=== PATIENT | female | born 1990 | race Caucasian/White ===

== ENCOUNTER 2020-08-26 23:55 | Inpatient (IN) | payer OTHER, SELFPAY ==
[~2020-08-26] VITALS: Ht 172.7 cm; Wt 77.3 kg
[2020-08-27] VITALS (34 sets, daily range): BP systolic 98–163; BP diastolic 51–93
[2020-08-27] MEDS ORDERED: PRENTAB29 PO (00:17)
[2020-08-27] MEDS ORDERED: FENTANYL 2MCG/ML ROPIVACAINE 0.2% IN 0.9% NACL 100ML IVBAG As Ordered ONE (00:33)
[2020-08-27] MEDS ORDERED: OXYTOCIN 30 UNITS IN 0.9% NaCl 500ML IV BAG (J2590) As Ordered ONE (00:34)
[2020-08-27 00:47] LABS: HEMATOCRIT 34.6 % (36.0-47.0); HEMOGLOBIN 11.1 g/dl (12.0-15.5); MEAN CORPUSCULAR HGB CONC 32.1 g/dl (32.0-36.5); PLATELET COUNT, AUTOMATED 262 10^3/uL (150-450); RED BLOOD COUNT 4.27 10^6/uL (4.00-5.40); WHITE BLOOD COUNT 13.6 10^3/uL (4.0-10.0)
--- NOTE | 2020-08-27 01:03 | HPEPDOC ---
Obstetrical History & Physical General Date of Admission Aug 27, 2020 at 00:03 History of Present Illness 29yo at 40+0wks presenting for c/o worsening ctx's and gush of clear fluid at 2330. Endorses spotting VB. Denies DFM. Chief Complaint: Contractions, term, LOF, term Information Provided By: Patient Age: 29 : 1 Care Care: Good Care Dating Final EDC: Aug 27, 2020 Final EDC for Daily Update: Aug 27, 2020 Final EDC by: 1st trimester (US) (6w3d on [id number]) Antepartum Course Diagnos(e)s Abnormal pap - ASCUS/HPV+ UTI in Height (inches): 68 Pre- weight (lbs.): 140 Admission Weight (lbs.): 172 Change in Weight (lbs.): 32 Past Medical History Past Obstetrical History : Past Obstetrical History: Primgravida [employer] History: Ovarian cysts (PCOS), History of STD (chlamydia prior to ) Past Medical History Medical History Denies Surgical History: Tonsilectomy, Angie teeth Family History Significant Family History: Diabetes (Mother and sister have Type I DM) Social History Marital Status: Family situation: Spouse/partner home Psychosocial History: No pertinent psych hx * Smoker: non-smoker Alcohol: Denies Drugs: denies Abuse Violence Screening Have you been hit/kicked/slapp: No Have you been sexually assault: No Imunizations Tdap status: current (06/07/20) Influenza Status: current (02/08/20) Allergies Coded Allergies: No Known Allergies (Unverified , 08/27/20) Medications Scheduled Vit No.130/Iron/Folic ( Tablet) 1 Each Tablet, 1 TAB PO DAILY Physical Examination Physical Examination GENERAL: Alert and oriented times three. In moderate distress from painful ctx's ABDOMEN: Gravid and non-tender to touch. FETUS: Is vertex (VTX) by sterile vaginal examination (SVE), fetus is vertex (VTX) by [place]. CARDS: well-perfused RESP: no exaggerated respiratory effort appreciated, no cough EXTREMITIES: No edema. : NEFG, grossly ruptured with clear fluid present, no VB appreciated. SVE 4/80/-1 Laboratory Data Urine Culture: Contaminated Pertinent Laboratoy Data Blood Type: O+ RBC Antibody Screen: Negative HIV: Negative Hepatitis B: Negative Rapid Plasma Reagin: Nonreactive Rubella: Immune Varicella: Immune Chlamydia/Gonorrhea: Negative Group B Streptococcus: Negative ([id number]) Cystic Fibrosis: Unknown Glucose Tolerance Test: 106 Diag/Inter Therapy M21 - low risk with male fetus Pap - ASCUS/HPV+ Anatomy Ultrasound Ultrasound Date: April 09, 2020 Placenta Location: Anterior Normal Anatomy: Yes Placenta Previa: No Vaginal Examination Dilation: 4 cm Effacement: 80% Station: -1 Cervical Consistency: Soft Cervical Position: Anterior Presentation: Cephalic presentation Assessment Heart Rate (FHR): 140 Variability: Moderate Accelerations: Positive Decelerations: None Tocometer Contractions: Yes Frequency: every 1-5 min. Multi-drug resistant Organism: No history of MDRO Assessment/Plan Assessment 29yo at 40+0wks presenting for painful ctx's and gush of fluid. Patient found to make spontaneous cervical change upon presentation from 2/80/-1 to 4/80/-1 and noted to be grossly ruptured. Patient in active labor. FHRT cat I. Normotensive, afebrile. GBS neg. EFW 3500g. Plan Admit and orient. House Piping Inspector and consent. Diet: clears as tolerated Group B Streptococcus (GBS) negative. Labs and intravenous (IV) per unit protocol. Lactated Ringers (LR): Bolus 800 mL, then at 125 mL/hr. Anticipate normal spontaneous delivery (). C-S as appropriate. CHRIS GUILLEN DO Aug 27, 2020 01:03
--- NOTE | 2020-08-27 01:08 | IPNPDOC ---
Obstetrical Progress Note Date of Service Aug 27, 2020 Subjective Patient screaming in pain from ctx's and endorsing pelvic pressure Assessment Heart Rate (FHR): 130 Variability: Moderate Accelerations: None Decelerations: Early, Late Heart Rate Tracing: Category II Tocometer Contractions: Yes Frequency: every 1-3 min. Sterile Vaginal Examination Dilation: 7 cm Effacement (%): 100% Station: 0 Cervical Consistency: Soft Cervical Position: Anterior Postion/Presentation: Cephalic presentation Assessment and Plan Group B Streptococcus: Negative Anticipate: Vaginal Delivery Additional Comments Patient has made spontaneous cervical change with bloody show noted. FHRT has become cat II for late vs early decels. Maternal IV bolus initiated, Maternal O2 applied, and positional changes performed. Patient desires epidural for pain mgmt. Anesthesia consulted. Plan for expectant . CHRIS GUILLEN DO Aug 27, 2020 01:08
[2020-08-27] MEDS ORDERED: ePHEDrine SULFATE 25 MG/5 ML(5MG/ML) SYRINGE IV PRN (01:29)
[2020-08-27] MEDS ORDERED: LACTATED RINGER'S 1000 ML IV PRN (01:29)
[2020-08-27] MEDS ORDERED: EPIDURAL/PCA KEYS XX PRN (01:29)
[2020-08-27] MEDS ORDERED: EPIDURAL COMMENT XX SCH (01:29)
[2020-08-27] MEDS ORDERED: FENTANYL/ROPIVACAINE/NACL BAG 100 ML EPIDURAL SCH (01:29)
[2020-08-27] MEDS ORDERED: diphenhydrAMINE 50MG/ML VIAL (J1200) IV PRN (01:29)
[2020-08-27] MEDS ORDERED: ONDANSETRON 4MG/2ML VIAL IV PRN (01:29)
[2020-08-27] MEDS ORDERED: NALOXONE INJ 0.4MG/1ML VIAL (J2310 PER 1MG) IV PRN (01:29)
[2020-08-27] MEDS ORDERED: REFRIGERATOR IV KEYS XX PRN (01:29)
--- NOTE | 2020-08-27 03:18 | IPNPDOC ---
Obstetrical Progress Note Date of Service Aug 27, 2020 Subjective Patient feeling pressure with ctx's when on her side. Assessment Heart Rate (FHR): 140 Variability: Moderate Accelerations: None Decelerations: None Heart Rate Tracing: Category I Tocometer Contractions: Yes Frequency: every 1-3 min. Sterile Vaginal Examination Dilation: 9 cm Effacement (%): 100% Station: +1 Cervical Consistency: Soft Cervical Position: Anterior Postion/Presentation: Cephalic presentation Assessment and Plan Status: Reassuring Group B Streptococcus: Negative Anticipate: Vaginal Delivery Additional Comments Patient had attempted to push for 30 minutes after requesting to start pushing due to pressure. AL attempted to be reduced but unable to keep reduced between pushes. No descent after 30 minutes of pushing. Will stop pushing at this time and allow for passive descent with positional changes using peanut ball. FHRT cat I. Patient desires to proceed, safe to continue. CHRIS GUILLEN DO Aug 27, 2020 03:18
--- NOTE | 2020-08-27 06:48 | DNPDOC ---
[facility] Delivery Note Delivery Note DATE OF DELIVERY: 08/27/2020 PREDELIVERY DIAGNOSIS: 40+0/7 weeks' gestation and labor. POST DELIVERY DIAGNOSIS: Delivered. PROCEDURE: Spontaneous vaginal delivery. INSPECTOR STRUCTURAL BONDING: Dr. Chris Guillen ANESTHESIA: Epidural. ESTIMATED BLOOD LOSS: 100 mL. FINDINGS: 9 pound 6 ounce 4240g male , Score 8/9, no nuchal cord, terminal meconium noted on delivery field DELIVERY SUMMARY: Patient was found to push down to c/c/+4 station. Patient prepped for delivery. With good maternal effort, spontaneous vaginal delivery of a viable male . Presentation was OA with restitution to ROT with left shoulder anterior position. Anterior shoulder and body delivered without difficulty. No nu chal/foot/body cord noted. Terminal meconium upon delivery of body noted. Infant placed on maternal abdomen with spontaneous cry. Infant dried and bulb suctioned and care transferred to [place] Team. Pitocin IV bolus initiated. Inspection revealed vaginal floor laceration that was repaired using 2-0 vicryl in running, non-locking fashion with good hemostasis achieved. After 9 minutes of delayed cord clamping, three vessel cord clamped x2 and cut by patient. Third stage spontaneous with intact placenta. Fundal massage revealed firm uterine tone. EBL 100ml. Mother and infant stable and bonding upon my leaving the room. CHRIS GUILLEN DO Aug 27, 2020 06:48
[2020-08-28 06:00] VITALS: BP 108/67
--- NOTE | 2020-08-28 09:01 | OBDS ---
[facility] Obstetrical Discharge Sum. Obstetrical Discharge Summary Date: Aug 28, 2020 Time: 08:21 : 1 Term: 1 Pre-term: 0 Abortions: 0 Livin VDRL: Non-Reactive Rh: Positive Rubella: Immune Labor 29 y/o G1 now P1001 s/p presented to labor and delivery with SROM. She progressed to fully dilated and delivered via vaginal delivery without complications. Delivery 08/27/2020 Sex: Male Infant Weight: pounds (9), ounces (6), grams (4240) Anesthesia: Regional Anesthesia A/P, Post Course List any complications Admission diagnosis: SROM. Discharge diagnosis: s/p Condition at Discharge: Patient is feeling well without any concerns at this time Discharge Instructions: Home/other Activity: May continue usual activities Diet: Regular as tolerated Medications: Take prescriptions as instructed Follow-up: 4-6 weeks for visit Other: Discussed plan and s/s to monitor for and when to return to clinic TJ GREEN CNM Aug 28, 2020 08:21
[2020-08-28 17:46] VITALS: BP 117/68
--- NOTE | 2020-09-05 15:42 | IPN ---
DATE: 08/27/2020 This patient requested circumcision of her male . After discussing the risks and benefits of circumcision, the medical to non-medical indications, the penile block and aftercare, expressed understanding of penile block, aftercare, and bleeding, signed the consent form, all questions were answered, 20 minute discussion. We await the clearance by the flow floor attendant. XI
== END 2020-08-28 18:40 | disposition home or self-care (01) | DRG 807 ==
LOC: M LDO 23:55 → M LDI 08-27 00:03 → M OBS 08-27 09:44
PROC: 10E0XZZ Delivery of Products of Conception, External Approach (ICD-10-PCS; principal; 2020-08-27)
PROC: 0HQ9XZZ Repair Perineum Skin, External Approach (ICD-10-PCS; 2020-08-27)
DX: O70.0 First degree perineal laceration during delivery (principal); Z37.0 Single live birth; Z3A.40 40 weeks gestation of pregnancy; O77.0 Labor and delivery complicated by meconium in amniotic fluid

== ENCOUNTER 2022-02-06 17:19 | Outpatient (CLI) | payer OTHER ==
[~2022-02-06] VITALS: Ht 175.3 cm; Wt 75.0 kg
[~2022-02-06 17:19] MED LIST: PRENTAB29 PO
[2022-02-06 17:34] VITALS: BP 118/60
[2022-02-06] MEDS ORDERED: HOME MED LIST COMPLETE! XX SCH (17:50)
== END 2022-02-06 18:05 | disposition home or self-care (01) ==
LOC: M LDO 17:19
PROVIDERS: ATTEND Obstetrics & Gynecology
DX: O47.9 False labor, unspecified (principal); Z3A.00 Weeks of gestation of pregnancy not specified
CPT/HCPCS: 59025; G0378; G0463

== ENCOUNTER 2022-02-12 17:50 | Inpatient (IN) | payer OTHER ==
[~2022-02-12] VITALS: Ht 175.3 cm; Wt 76.0 kg
[2022-02-12] VITALS (37 sets, daily range): BP systolic 95–140; BP diastolic 54–74
[2022-02-12] MEDS ORDERED: LACTATED RINGER'S 1000 ML IV STA (17:56)
[2022-02-12] MEDS ORDERED: LIDOCAINE 1% MDV 20ML VIAL INFIL PRN (18:00)
[2022-02-12] MEDS ORDERED: METHYLERGONOVINE MALEATE 0.2 MG/ML VIAL (J2210) IM PRN (18:00)
[2022-02-12] MEDS ORDERED: TRANEXAMIC ACID INJection 1,000 MG in NS 100 ML IV PRN (18:00)
[2022-02-12] MEDS ORDERED: CARBOPROST TROMETHAMINE 250 MCG/ML AMP IM PRN (18:00)
[2022-02-12] MEDS ORDERED: OXYTOCIN DRIP 30 UNITS in IV 1 EA IV PRN ×4 (18:00)
[2022-02-12] MEDS ORDERED: LR 1,000 ML IV SCH (18:00)
[2022-02-12 18:25] LABS: HEMATOCRIT 34.2 % (36.0-47.0); HEMOGLOBIN 10.9 g/dl (12.0-15.5); MEAN CORPUSCULAR HEMOGLOBIN 26.3 pg (27.0-33.0); MEAN CORPUSCULAR HGB CONC 31.9 g/dl (32.0-36.5); MEAN CORPUSCULAR VOLUME 82.6 fl (80.0-96.0); PLATELET COUNT, AUTOMATED 242 10^3/uL (150-450); RED BLOOD COUNT 4.14 10^6/uL (4.00-5.40); WHITE BLOOD COUNT 12.3 10^3/uL (4.0-10.0)
[2022-02-12] MEDS ORDERED: FENTANYL 2MCG/ML ROPIVACAINE 0.2% IN 0.9% NACL 100ML IVBAG As Ordered ONE (18:26)
[2022-02-12] MEDS ORDERED: ONDANSETRON 4MG/2ML VIAL IV PRN (18:40)
[2022-02-12] MEDS ORDERED: EPIDURAL COMMENT XX SCH (18:40)
[2022-02-12] MEDS ORDERED: REFRIGERATOR IV KEYS XX PRN (18:40)
[2022-02-12] MEDS ORDERED: EPIDURAL/PCA KEYS XX PRN (18:40)
[2022-02-12] MEDS ORDERED: diphenhydrAMINE 50MG/ML VIAL (J1200) IV PRN (18:40)
[2022-02-12] MEDS ORDERED: NALOXONE INJ 0.4MG/1ML VIAL (J2310 PER 1MG) IV PRN (18:40)
[2022-02-12] MEDS ORDERED: FENTANYL/ROPIVACAINE/NACL BAG 100 ML EPIDURAL SCH (18:40)
[2022-02-12] MEDS ORDERED: HOME MED LIST COMPLETE! XX SCH (19:00)
[2022-02-13] VITALS (9 sets, daily range): BP systolic 110–120; BP diastolic 57–75
[2022-02-13] MEDS ORDERED: DIBUCAINE 1% OINTMENT 30GM TOP PRN (01:05)
[2022-02-13] MEDS ORDERED: MEASLES,MUMPS,RUBELLA VACCINE INJ (MMR-II) (90707) SC SCH (01:05)
[2022-02-13] MEDS ORDERED: IBUPROFEN 600MG TAB PO PRN (01:05)
[2022-02-13] MEDS ORDERED: LR 1,000 ML IV SCH (01:05)
[2022-02-13] MEDS ORDERED: OXYTOCIN DRIP 30 UNITS in IV 1 EA IV SCH (01:05)
[2022-02-13] MEDS ORDERED: ACETAMINOPHEN TAB 650MG DOSE (2X325MG) PO PRN (01:05)
[2022-02-13] MEDS ORDERED: RHOGAM 300 MCG (1500 IU) INJ (J2790) IM SCH (01:05)
[2022-02-13] MEDS ORDERED: ANUSOL HC CREAM 30GM TOP PRN (01:05)
[2022-02-13] MEDS ORDERED: ONDANSETRON 4MG/2ML VIAL IV PRN (01:05)
[2022-02-13] MEDS ORDERED: DOCUSATE SODIUM 100MG CAPSULE PO PRN (01:05)
[2022-02-13] MEDS ORDERED: METHYLERGONOVINE MALEATE 0.2 MG TAB PO PRN (01:05)
[2022-02-13] MEDS: PRENATAL VITAMINS CHEWABLE TABLET PO SCH (08:12)
[2022-02-13] MEDS: IBUPROFEN 800 MG TAB PO PRN ×2 (09:17→17:36)
[2022-02-13] MEDS: ACETAMINOPHEN 500 MG TAB PO PRN ×2 (11:12→21:14)
[2022-02-14 06:00] VITALS: BP 111/66
[2022-02-14] MEDS ORDERED: ACET1TAB55 PO (06:18)
[2022-02-14] MEDS ORDERED: IBUP-1022 PO (06:18)
[2022-02-14] MEDS ORDERED: COLA100C5 PO (06:18)
[2022-02-14] MEDS: PRENATAL VITAMINS CHEWABLE TABLET PO SCH (10:10)
[2022-02-14] MEDS: IBUPROFEN 800 MG TAB PO PRN (10:11)
== END 2022-02-14 13:15 | disposition home or self-care (01) | DRG 807 ==
LOC: M LDO 17:50 → M LDI 17:55 → M OBS 02-13 03:30
PROVIDERS: ADMIT Obstetrics & Gynecology; ATTEND Obstetrics & Gynecology
PROC: 10E0XZZ Delivery of Products of Conception, External Approach (ICD-10-PCS; principal; 2022-02-12)
PROC: 10907ZC Drainage of Amniotic Fluid, Therapeutic from Products of Conception, Via Natural or Artificial Opening (ICD-10-PCS; 2022-02-12)
DX: O80 Encounter for full-term uncomplicated delivery (principal); Z37.0 Single live birth; Z3A.39 39 weeks gestation of pregnancy